=== PATIENT | male | born 1950 | race Caucasian/White ===

== ENCOUNTER → 2016-03-13 | Outpatient (CLI) | payer BC ==
[2016-03-15 13:43] LABS: FECAL FAT WEIGHT 9 g
[2016-03-15 15:02] LABS: Fecal Fat Hrs Random h (())
== END ==
LOC: LAB 10:17
PROVIDERS: ATTEND Family Medicine
DX: A08.4 Viral intestinal infection, unspecified (principal)
CPT/HCPCS: 82710; 83986; 84999; 87507; 89055